=== PATIENT | female | born 1955 | race Caucasian/White ===

== ENCOUNTER → 2021-09-11 | Outpatient (CLI) | payer MEDICARE ==
[~2021-09-11] MED LIST: ESZO3TAB28 PO; HYDR12.572 PO; SODI56GE DT; THYR30TA PO; THYR60TA PO
--- NOTE | 2021-09-15 09:52 | RAD ---
INDICATION : Routine Screening. COMPARISON: July 2016 TECHNIQUE: Standard mammogram screening views of the bilateral breasts were obtained with 3D tomosynt hesis. CAD was utilized. FINDINGS: The breasts are scattered density. No definite new suspicious mass. There is repeat demonstration of some benign-appearing well-circumscribed masses. IMPRESSION: BI-RADS Category 2: Benign findings. Recommend repeat screening examination in one year. The patient was placed into the recall system with a suggested recall date for follow up imaging. Mammography is the most sensitive method for finding small breast cancers, but it does not detect the m all and is not a substitute for careful clinical examination. A negative mammogram does not negate a clinically suspicious finding and should not result in delay in biopsying a clinically suspicious abnormality. Electronically signed by: Mickey Mims MD (09/15/2021 9:49 AM) [id number]
== END ==
LOC: MAMMO 12:44
PROVIDERS: ATTEND Family Medicine
DX: Z12.31 Encounter for screening mammogram for malignant neoplasm of breast (principal)
CPT/HCPCS: 77063; 77067